=== PATIENT | male | born 1960 | race Caucasian/White ===

== ENCOUNTER 2017-02-06 08:44 | Emergency (ER) | payer OTHER ==
[~2017-02-06] VITALS: Ht 182.9 cm; Wt 77.5 kg
[2017-02-06 08:49] VITALS: BP 146/81; PULSE 86; RESP 20; TEMP 98.8; O2SAT 95
--- NOTE | 2017-02-06 09:21 | PD ---
HPI Chief Complaint: Bite or Sting Time Seen by Provider: 09:20 Travel History International Travel<30 days: No Contact w/Intl Traveler<30days: No Traveled to known affect area: No History of Present Illness HPI 56-year-old male presents to emergency Department with complaint of a dog bite wound to his left hand that occurred today. He has the national van owner operator's information on the dog and is going to call to verify vaccination status of the dog. He declines initiation of rabies protocol at this time. Unknown tetanus vaccination status. Denies paresthesias, loss of sensation, decreased range of motion, decreased strength to the affected extremity. Denies fever, chills, nausea, vomiting. Has not taken any medications or tried any treatments to alleviate his symptoms. Has applied pressure to the area to control bleeding. Allergies to Anectine. No other modifying factors or associated signs and symptoms. PFSH Past Medical History Cancer: Yes (liver) Immune Disorder: Yes (HIV) Tetanus Vaccination: Unknown Influenza Vaccination: Yes Past Surgical History Other Surgery: Yes (partial liver removal) Social History Alcohol Use: Yes (weekly) Tobacco Use: Yes (1/2 ppd) Substance Use: No Allergies-Medications (Allergen,Severity, Reaction): Coded Allergies: Anectine (Verified Allergy, Severe, 02/06/17) Reported Meds & Prescriptions Reported Meds & Active Scripts Active Ibuprofen 800 Mg Tab 800 Mg PO Q6HR PRN Augmentin (Amoxicillin-Clavulanate) 875-125 mg Tab 875 Mg PO BID 10 Days not for use in CrCl <30 ml/min. Review of Systems Except as stated in HPI: all other systems reviewed are Neg Physical Exam Narrative GENERAL: Well-nourished, well-developed male patient, in no acute distress; afebrile, nontoxic-appearing SKIN: Warm and dry. Less than 0.5 cm puncture wound to left thenar eminence; areas without erythema, edema; minimal amount of bright red drainage. Left hand is with full range of motion and strength. Left upper Ixodes supple and non-tense with 2+ radial pulse and sensory intact and without erythema or edema. HEAD: Atraumatic. Normocephalic. EYES: Pupils equal and round. No scleral icterus. No injection or drainage. ENT: Mucosa pink and moist. Airway patent. NECK: Trachea midline. CARDIOVASCULAR: Regular rate. RESPIRATORY: No accessory muscle use. GASTROINTESTINAL: Flat. MUSCULOSKELETAL: No obvious deformities. No clubbing. No cyanosis. No edema. NEUROLOGICAL: Awake and alert. Oriented 3. No obvious cranial nerve deficits. Motor grossly within normal limits. Normal speech. PSYCHIATRIC: Appropriate mood and affect; insight and judgment normal. Data Data Last Documented VS Vital Signs Date Time Temp Pulse Resp B/P Pulse Ox O2 Delivery O2 Flow Rate FiO2 02/06/17 08:49 98.8 86 20 146/81 95 Room Air Orders Tetanus/Diphtheria Tox Adult (Tetanus/Di (02/06/17 09:30) Wound Care (02/06/17 09:22) MDM Medical Decision Making Medical Screen Exam Complete: Yes Emergency Medical Condition: Yes Medical Record Reviewed: Yes Differential Diagnosis Dogbite wounds, puncture wound, laceration Narrative Course 56-year-old male with dog bite wound to left thenar eminence. The wound is less than 0.5 cm. Dog's vaccination status is unknown but the patient has no nurse information to call and verify. He declines initiation of rabies protocol at this time. Tetanus updated in the ER. Wound care provided. Augmentin, ibuprofen prescribed for home. Instructed patient to follow up with vaccination status of the dog and to follow up with health department or return to the emergency department for rabies protocol if needed. Patient verbalizes understanding and agreement with treatment plan. Patient is medically cleared and stable for discharge. Discussed reasons to return to the emergency department. Instructed patient to follow up with primary care provider. Patient agrees with treatment plan. The patients vital signs are stable and the patient is stable for outpatient follow-up and treatment. Patient discharged home, stable and in no acute distress. Diagnosis Primary Impression: Dog bite of left hand Qualified Code: S61.452A - Dog bite of left hand, initial encounter Referrals: Primary Care Physician Patient Instructions: Acute Wound Care (ED), Animal Bite (ED), General Instructions Departure Forms: Tests/Procedures, Work Release Enter return to work date: Feb 07, 2017 Additional Instructions: Antibiotics as prescribed Keep area clean and dry Ibuprofen or Tylenol as directed and as needed for pain and inflammation Ice pack to area as needed to decrease pain Follow-up with primary care provider Return to the emergency department immediately with worsening of symptoms, particularly if reddened streaks up or down the affected extremity from the suture site, fever, numbness/tingling in the affected extremity, loss of sensation in the affected extremity, severe swelling of the affected Med/Other Pt SpecificInfo: Prescription(s) given Scripts Ibuprofen 800 Mg [id number] Mg PO Q6HR PRN (PAIN) #30 TAB Ref 0 Prov:Cindy Espinal 02/06/17 Amoxicillin-Clavulanate (Augmentin)875-125 mg [id number] Mg PO BID 10 Days Ref 0 not for use in CrCl <30 ml/min. Prov:Cindy Espinal 02/06/17 Disposition: 01 DISCHARGE HOME Condition: Stable Cindy Espinal Feb 06, 2017 09:21
[2017-02-06] MEDS ORDERED: IBUP800T23 PO (09:22)
[2017-02-06] MEDS ORDERED: AUGM875T PO (09:22)
[2017-02-06] MEDS ORDERED: TETANUS/DIPHTHERIA TOXOID ADULT 0.5 ML VIAL IM ONE (09:30)
== END 2017-02-06 09:49 | disposition home or self-care (01) ==
LOC: NEPK 08:44
DX: S61.452A Open bite of left hand, initial encounter (principal); B20 Human immunodeficiency virus [HIV] disease; Z23 Encounter for immunization; F17.210 Nicotine dependence, cigarettes, uncomplicated; W54.0XXA Bitten by dog, initial encounter; Y93.9 Activity, unspecified; Y92.9 Unspecified place or not applicable; Y99.9 Unspecified external cause status
CPT/HCPCS: 90471; 90714